=== PATIENT | female | born 1995 ===

== ENCOUNTER 2022-09-09 01:20 | Inpatient (IN) | payer OTHER ==
[2022-09-09] MEDS: DEXTROSE 5%-LACTATED RINGERS 1,000 ML IV SCH ×2 (03:30→20:40)
[2022-09-09 05:41] LABS: BASO % 0.5 % (0-2.0); EOS % 0.7 % (0-4.5); HEMATOCRIT 32.1 % (32.4-45.2); HEMOGLOBIN 10.7 GM/dL (10.7-15.3); LYMPH % 20.8 % (8-40); MCH 28.1 pg (25.7-33.7); MCHC 33.3 g/dl (32.0-36.0); MEAN CELL VOLUME 84.5 fl (80-96); MEAN PLT VOLUME 12.2 fl (7.5-11.1); PLATELET COUNT 208 10^3/uL (134-434); RDW 15.6 % (11.6-15.6); WHITE BLOOD COUNT 10.6 K/mm3 (4.0-10.0)
[2022-09-09 05:52] LABS: INR 0.92 (0.83-1.09); PROTHROMBIN TIME (PATIENT) 10.7 SEC (9.7-13.0)
[2022-09-09 05:55] LABS: ACTIVATED PTT 22.4 SECONDS (25.2-36.5)
[2022-09-09 06:04] LABS: CALCIUM 8.7 mg/dL (8.5-10.1)
[2022-09-09 06:05] LABS: ALBUMIN 2.6 g/dl (3.4-5.0); BLOOD UREA NITROGEN 11.9 mg/dL (7-18)
[2022-09-09 06:08] LABS: CREATININE 0.6 mg/dL (0.55-1.3)
[2022-09-09 06:09] LABS: BILIRUBIN,TOTAL 0.1 mg/dL (0.2-1); TOT PROT 5.8 g/dl (6.4-8.2)
[2022-09-09 06:32] LABS: SYPHILIS W/ RPR CONF NON-REACTIVE (NONREACTIVE)
[2022-09-09 07:01] LABS: HIV INTERPRETATION NEGATIVE (NEGATIVE)
[2022-09-09 07:21] VITALS: BMI 25.2
[2022-09-09] MEDS ORDERED: morphine SULFATE 4 MG/ML VIAL IVPB ONE ×2 (09:00→15:45)
[2022-09-09] MEDS ORDERED: morphine SULFATE 4 MG/ML VIAL ONE ×2 (09:55→15:45)
[2022-09-09 13:18] LABS: POC NITRAZINE POS
[2022-09-09] MEDS ORDERED: OXYTOCIN 30 UNITS in 0.9% NS 30 UNIT/500 ML INFUS.BAG IVPB ONE (19:27)
[2022-09-09] MEDS ORDERED: OXYTOCIN 30 UNITS in 0.9% NS 30 UNIT/500 ML INFUS.BAG IVPB SCH (19:30)
[2022-09-09] MEDS ORDERED: PENICILLIN G POTASSIUM 20,000,000 (20Mm) UNITS VIAL IVPB ONE (19:48)
[2022-09-09] MEDS ORDERED: PENICILLIN G POTASSIUM 5,000,000 UNIT/250 ML BAG IVPB ONE ×2 (20:00→20:06)
[2022-09-09] MEDS ORDERED: PENICILLIN G POTASSIUM 20,000,000 (20Mm) UNITS VIAL IVPB SCH (23:30)
[2022-09-10] MEDS: PENICILLIN G POTASSIUM 2,500,000 UNIT in SODIUM CHLORIDE 250 ML IVPB SCH (00:20)
[2022-09-10] MEDS ORDERED: OXYTOCIN 20 UNITS in 0.9% NS 20 UNIT/1,000 ML INFUS.BAG IV ONE (01:30)
[2022-09-10 04:25] LABS: CORD BASE EXCESS -3.6 mmol/L (0-2); CORD HCO3 22.2 mmHg (20-29); CORD PCO2 42.8 mmHg (30-78); CORD pH 7.333 (7.14-7.44)
[2022-09-10] MEDS ORDERED: WITCH HAZEL 50% (TUCKS) 40 PAD/JAR PAD TP PRN (04:34)
[2022-09-10] MEDS ORDERED: BENZOCAINE 28 GM HEMORRHOIDAL OINTMENT TP PRN (04:34)
[2022-09-10] MEDS ORDERED: OXYTOCIN 20 UNITS in 0.9% NS 20 UNIT/1,000 ML INFUS.BAG IV SCH (04:45)
[2022-09-10] MEDS ORDERED: LACTATED RINGERS SOLUTION 1000 ML INFUS.BAG IV ONE (07:38)
[2022-09-10] MEDS ORDERED: METHYLERGONOVINE MALEATE 0.2 MG/1 ML AMP IM PRN (08:07)
[2022-09-10] MEDS: IBUPROFEN 600 MG TABLET (FP) PO PRN ×2 (09:31→17:52)
[2022-09-10 09:32] LABS: HEMOGLOBIN 8.5 GM/dL (10.7-15.3); MCH 27.3 pg (25.7-33.7); MCHC 32.8 g/dl (32.0-36.0); MEAN CELL VOLUME 83.2 fl (80-96); MEAN PLT VOLUME 10.8 fl (7.5-11.1); PLATELET COUNT 173 10^3/uL (134-434); RBC 3.12 M/mm3 (3.60-5.2); RDW 15.5 % (11.6-15.6); WHITE BLOOD COUNT 22.4 K/mm3 (4.0-10.0)
[2022-09-10] MEDS: FERROUS SO4 325 MG TABLET (FP) PO SCH ×3 (09:33→17:51)
[2022-09-10] MEDS: PRENATAL VITAMINS W/ FOLIC ACID TABLET (FP) PO SCH (09:33)
[2022-09-10 09:46] LABS: POTASSIUM 3.6 mmol/L (3.5-5.1)
[2022-09-10 09:48] LABS: BLOOD UREA NITROGEN 5.7 mg/dL (7-18); CALCIUM 8.5 mg/dL (8.5-10.1)
[2022-09-10 09:52] LABS: CREATININE 0.7 mg/dL (0.55-1.3)
[2022-09-10] MEDS: ACETAMINOPHEN 325 MG TABLET (FP) PO PRN (20:52)
[2022-09-11] MEDS: IBUPROFEN 600 MG TABLET (FP) PO PRN (05:51)
[2022-09-11 09:28] LABS: BASO % 0.3 % (0-2.0); EOS % 0.4 % (0-4.5); HEMATOCRIT 24.5 % (32.4-45.2); HEMOGLOBIN 7.9 GM/dL (10.7-15.3); LYMPH % 18.8 % (8-40); MCH 27.9 pg (25.7-33.7); MCHC 32.3 g/dl (32.0-36.0); MEAN CELL VOLUME 86.4 fl (80-96); MEAN PLT VOLUME 11.7 fl (7.5-11.1); NEUT % 73.5 % (42.8-82.8); PLATELET COUNT 192 10^3/uL (134-434); RBC 2.83 M/mm3 (3.60-5.2); RDW 15.7 % (11.6-15.6); WHITE BLOOD COUNT 14.2 K/mm3 (4.0-10.0)
[2022-09-11] MEDS: PRENATAL VITAMINS W/ FOLIC ACID TABLET (FP) PO SCH (09:47)
[2022-09-11] MEDS: FERROUS SO4 325 MG TABLET (FP) PO SCH ×3 (09:47→17:59)
[2022-09-11] MEDS: ACETAMINOPHEN 325 MG TABLET (FP) PO PRN (17:59)
[2022-09-12] MEDS: PRENATAL VITAMINS W/ FOLIC ACID TABLET (FP) PO SCH (09:02)
[2022-09-12] MEDS: FERROUS SO4 325 MG TABLET (FP) PO SCH ×2 (09:02→13:14)
[2022-09-12 09:12] VITALS: BP 109/57; PULSE 88; RESP 18; TEMP 97.8
[2022-09-12] MEDS: PENICILLIN G POTASSIUM 2,500,000 UNIT in SODIUM CHLORIDE 250 ML IVPB SCH (13:11)
== END 2022-09-12 13:50 | disposition home or self-care (01) | DRG 807 ==
LOC: JDEL 01:20 → JLDR 03:00 → J3W 09-10 05:58
PROVIDERS: ADMIT Obstetrics & Gynecology Maternal & Fetal Medicine; ATTEND Obstetrics & Gynecology Maternal & Fetal Medicine
PROC: 10E0XZZ Delivery of Products of Conception, External Approach (ICD-10-PCS; principal; 2022-09-10)
PROC: 0KQM0ZZ Repair Perineum Muscle, Open Approach (ICD-10-PCS; 2022-09-10)
PROC: 10D07Z6 Extraction of Products of Conception, Vacuum, Via Natural or Artificial Opening (ICD-10-PCS; 2022-09-10)
DX: O24.424 Gestational diabetes mellitus in childbirth, insulin controlled (principal); Z37.0 Single live birth; O70.1 Second degree perineal laceration during delivery; O66.5 Attempted application of vacuum extractor and forceps; Z3A.38 38 weeks gestation of pregnancy; O90.89 Other complications of the puerperium, not elsewhere classified; R55 Syncope and collapse
CPT/HCPCS: 36415; 36600; 80048; 80053; 82803; 82962; 83986-QW; 84484; 85025; 85027; 85610; 85730; 86780; 86850; 86900; 86901; 87340; 87389; 88307-TC; 93005; 93010